=== PATIENT | female | born 1995 | race African-American/Black ===

== ENCOUNTER 2016-08-03 03:48 | Inpatient (IN) | payer OTHER ==
[2016-08-03 04:50] LABS: BASOPHIL 0.4 % (0-2.0); MCH 26.6 pg (25.7-33.7); MCHC 32.8 g/dl (32.0-36.0); MEAN CELL VOLUME 80.9 fl (80-96); NEUTROPHILS 68.6 % (42.8-82.8); RDW 13.7 % (11.6-15.6); WHITE BLOOD COUNT 10.2 K/mm3 (4.0-10.0)
--- NOTE | 2016-08-03 04:54 | HP ---
Past Medical History - Admission Chief Complaint: she c/o ruptured meebranes History of Present Illness: 20 y/o female gestational age 38 -39 WEEKS ANTEPARTUM care was done by dr Enciso .she offers no complaints her care has been unremarkablep 11 08 15 due date is 08 15 16 History Source: Patient Limitations to Obtaining History: No Limitations - Past Medical History DATA MIGRATION LEAD: No: Alzheimer's, CVA, Dementia, Migraine, Multiple Sclerosis, Peripheral Neuropathy, Parkinson's, Seizure, Syncope, TIA, Vertigo, Other Cardiovascular: No: AFIB, Aneurysm, Aortic Insufficiency, Aortic Stenosis, CAD, CHF, Deep Vein Thrombosis, HTN, Hyperlipdemia, RI, Mitral Insufficiency, Mitral Stenosis, Murmur, Pulmonary Hypertension, Other Pulmonary: No: Asthma, Bronchitis, Cancer, COPD, O2 Dependent, Pneumonia, Previously Intubated, Pulmonary Embolus, Pulmonary Fibrosis, Sleep Apnea, Other Gastrointestinal: No: Ascites, Cancer, Constipation, Crohn's Disease, Diverticulitis, Diverticulosis, Esophageal Varices, Gastritis, GERD, GI Bleed, Hemorrhoids, Hiatal Hernia, Inflamatory Bowel Disease, Irritable Bowel Disease, Pancreatitis, Peptic Ulcer Disease, Ulcerative Colitis, Other Hepatobiliary: No: Cirrhosis, Cholelithiasis, Cholecystitis, Choledocholithiasis , Hepatitis A, Hepatitis B, Hepatitis C, Other Renal/: No: Renal Failure, Renal Inusuff, BPH, Cancer, Hematuria, Hemodialysis , Neurogenic Bladder, Renal Calculi, UTI, Other Reproductive: No: Ectopic , Endometriosis, Fibroids, PID, Polycystic Ovary Syndrome, Postmenopausal, Other ...: 2 ...Para: 0 ...Term: 0 ...: 0 ...Spon : 0 ...Induced : 1 ...Multiple Gestation: 0 ...LMP: 11/08/15 ... Weeks Gestation by Dates: 38.2 ...EDC by Dates: 08/15/16 Heme/Onc: No: Anemia, B12 Deficiency, Bleeding Disorder, Cancer, Current Chemotherapy, Current Radiation Therapy, Hemochromatosis, Hypercoaguable State, Myeloproliferative Synd, Sickle Cell Disease, Sickle Cell Trait, Thrombocytopenia, Other Infectious Disease: No: AIDS, C-Diff, Herpes Zoster, HIV, MRSA, STD's, Tuberculosis, VREF, Other Psych: No: Addictions, Anxiety, Bipolar, Depression, Panic, Psychosis, Schizophrenia, Other Musculoskeletal: No: Bursitis, Chronic low back pain, Hemiparesis, Hemiplegia, Osteoarthritis, Paraplegia, Other Rheumatology: No: Fibromyalgia, Gout, Lupus, Rheumatoid Arthritis, Sarcoidosis, Vasculitis, Other ENT: No: Allergic Rhinitis, Sinusitis, Other Endocrine: No: [place]'s Disease, Ashely's Disease, Diabetes Insipidus, Diabetes Mellitus, Hyperparathyroidism, Hyperthyroidism, Hypothyroidism, Osteopenia, SIADH, Other Dermatology: No: Basal Cell, Cellulitis, Eczema, Melanoma, Psoriasis, Squamous Cell, Other - Past Surgical History Past Surgical History: No: None, AAA Repair, AICD, Amputation, Appendectomy, Arthrosocopy, AV Fistula/Graft, Bariatric Surgery, Breast Biopsy, Bypass, CABG, Carotid Endarterectomy, Cataract Removal, Cholecystectomy, Colectomy, Colonoscopy, Colostomy, Craniotomy, , Cystectomy, Hernia Repair, Hysterectomy, Ileal Conduit, Ileosotomy, Joint Replacement, Kidney Transplant, Laminectomy, Liver Transplant, Mastectomy, Nephrectomy, Oopherectomy, Orchiectomy, Permanent Pacemaker, Prostatectomy, Splenectomy, Stent, Thoracotomy , TURP, Tonsillectomy, Tubal Ligation, Upper Endoscopy, Valve Replacement, Vasectomy, Vein Stripping/Ligation Hx Myomectomy: No Hx Transabdominal Cerclage: No - Smoking History Smoking history: Never smoked Have you smoked in the past 12 months: No Aproximately how many cigarettes per day: 0 - Alcohol/Substance Use Hx Alcohol Use: No Home Medications - Allergies Allergies/Adverse Reactions: Allergies Allergy/AdvReac Type Severity Reaction Status Date / Time No Known Allergies Allergy Verified 03/31/16 13:02 - Home Medications Home Medications: Ambulatory Orders Vit/Iron Fumarate/FA [ Tablet] 1 tablet PO DAILY 03/28/16 Family Disease History - Family Disease History Family History: Unremarkable Review of Systems - Review of Systems Constitutional: denies: No Symptoms, Chills, Diaphoresis, Fever, Lethargy, Loss of Appetite, Malaise, Night Sweats, Unintentional Wgt. Loss, Weakness, Other Eyes: denies: No Symptoms, Blind Spots, Blurred Vision, Double Vision, Eye Pain , Floaters, Photophobia, Recent Change in Vision, Other HENT: denies: No Symptoms, Difficult Swallowing, Ear Discharge, Ear Pain, Epistaxis, Gingival Bleeding, Hearing Loss, Mouth Swelling, Nasal Congestion, Ocular Prosthesis, Throat Pain, Toothache, Ringing in Ears, Other Neck: denies: No Symptoms, Decreased ROM, Lumps, Pain on Movement, Stiffness, Swollen Glands, Tenderness, Other Cardiovascular: denies: No Symptoms, Chest Pain, Edema, Palpitations, Shortness of Breath, Other Respiratory: denies: No Symptoms, Cough, Exercise Intolerance, Hemoptysis, Orthopnea, PND, Snoring, SOB, SOB on Exertion, Wheezing, Other Gastrointestinal: denies: No Symptoms, Abdominal Pain, Bloating, Constipation, Diarrhea, Dysphagia, Indigestion, Melena, Nausea, Rectal Bleeding, Vomiting, Vomiting Blood, Other Genitourinary: denies: No Symptoms, Burning, Discharge, Dysuria, Flank Pain, Frequency, Hematuria, Incontinence, Lesions, Menses, Pain, Testicular Mass, Testicular Pain, Testicular Swelling, Urgency, Vaginal Bleeding, Other Breasts: denies: No Symptoms Reported, See HPI, Breast Implants, Discharge from Nipple, Lumps, Pain, Skin Changes, Other Musculoskeletal: denies: No Symptoms, Back Pain, Crepitus, Decreased ROM, Extremity Pain, Joint Pain, Joint Swelling, Muscle Pain, Muscle Cramps, Muscle Weakness, Other Integumentary: denies: No Symptoms, Blister, Bruising, Change in Color, Eczema, Erythema, Incision, Lesions, Lump, Pallor, Pruritis, Rash, Wound, Other Neurological: denies: No Symptoms, Change in LOC, Change in Speech, Confusion, Dizziness, Headache, Incoordination, Numbness, Parasthesia, Pre-Existing Deficit , Seizure, Syncope, Tremors, Unsteady Gait, Weakness, Other Endocrine: denies: No Symptoms, Excessive Sweating, Flushing, Increased Hunger, Increased Thirst, Intolerance to Cold, Intolerance to Heat, Unexplained Weight Gain, Unexplained Weight Loss, Other Psychiatric: denies: No Symptoms, Altered Sleep Pattern, Anxiety, Depression, Hallucinations, Panic, Paranoia, Suicidal, Other Physical Exam - Maternity Vital Signs: Vital Signs Temperature 97.9 F 08/03/16 04:14 Pulse Rate Respiratory Rate Blood Pressure O2 Sat by Pulse Oximetry (%) Constitutional: Yes: Well Nourished, No Distress, Anxious Eyes: Yes: WNL HENT: Yes: WNL Neck: Yes: WNL Cardiovascular: Yes: WNL Lungs: Clear to auscultation, Normal air movement Breast(s): Yes: WNL - Abdominal Exam/OB Number of Fetuses: Single Presentation: Vertex Assessment/Plan iup at term with ruptured membranes is admitted to L&D for labor and delivery current cervical evaluation is 4 cm 90% effaced continue continuous maternal monitoring GBS PROPHYLAXIS DUE TO UNKNOWN STATUS
[2016-08-03 05:08] LABS: INR 0.95 (0.82-1.09); PROTHROMBIN TIME (PATIENT) 10.4 SEC (9.98-11.88)
[2016-08-03] MEDS ORDERED: AMPICILLIN - 2 GM in SODIUM CHLORIDE 100 ML IVPB ONE (05:13)
[2016-08-03 05:14] LABS: MEAN PLT VOLUME 10.2 fl (7.5-11.1); PLATELET COUNT 82 K/MM3 (134-434)
[2016-08-03 05:15] LABS: PLATELET COMMENT2 NO CLOTTING DETECTED; PLATELET COMMENT3 FEW GIANT PLTS; PLATELET ESTIMATE SLT DECREASED (NORMAL)
[2016-08-03] MEDS ORDERED: DEXTROSE 5%-LACTATED RINGERS 1,000 ML IV SCH (05:15)
[2016-08-03] MEDS ORDERED: ELECTROLYTE-148 SOLN 1,000 ML IV SCH (05:15)
[2016-08-03 05:36] VITALS: BMI 26.5
[2016-08-03 05:46] LABS: ALBUMIN 3.4 g/dl (3.4-5.0); ALK PHOS 679 U/L (45-117); ANION GAP 8 (8-16); BILIRUBIN,TOTAL 0.2 mg/dL (0.2-1.0); CALCIUM 8.9 mg/dL (8.5-10.1); CO2 26 mmol/L (21-32); CREATININE 0.6 mg/dL (0.55-1.02); GLUCOSE,RANDOM 110 mg/dL (74-106); SGOT/AST 13 U/L (15-37); SGPT/ALT 13 U/L (12-78)
[2016-08-03 06:00] LABS: HIV 1 & 2 AB NEGATIVE; HIV 1 AGp24 NEGATIVE
[2016-08-03] MEDS ORDERED: TUBERCULIN PPD 5 TU/0.1ML SYRINGE (IN PATIENT USE ONLY) ID ONE (06:00)
[2016-08-03] MEDS ORDERED: BUTORPHANOL TARTRATE 1 MG/ML VIAL IVPUSH PRN (06:16)
[2016-08-03] MEDS: PROMETHAZINE HCL 25 MG/1 ML VIAL IM PRN ×2 (07:00→10:05)
--- NOTE | 2016-08-03 08:01 | PN ---
Progress Note, Labor Vaginal Exam #3 Labor Exam Date: 08/02/16 Labor Exam Time: 07:55 Heart Rate (range): 150bpm with occasional variabilities Dilatation: 7cm Effacement (%): complete Amniotic Membrane Status: Ruptured Presentation: Vertex/Position Station: 0 Remarks: tracing recovered with the patient on the left side , nasal O2 running . continue very close monitoring .
[2016-08-03 08:29] LABS: URINE APPEARANCE CLEAR; URINE BILIRUBIN NEGATIVE (NEGATIVE); URINE COLOR LTYELLOW; URINE GLUCOSE (UA) NEGATIVE (NEGATIVE); URINE KETONE NEGATIVE (NEGATIVE); URINE LEUK ESTERASE NEGATIVE (NEGATIVE); URINE NITRITE NEGATIVE (NEGATIVE); URINE PROTEIN NEGATIVE (NEGATIVE); URINE UROBILINOGEN NEGATIVE E.U./dl (0.2-1.0)
[2016-08-03 08:30] LABS: URINE BLOOD 2+ (NEGATIVE)
[2016-08-03 08:31] LABS: URINE BACTERIA RARE /hpf (NONE SEEN); URINE RBC 14 /hpf (0-3); URINE WBC 1 /hpf (3-5)
[2016-08-03 08:36] LABS: URIC ACID 5.1 mg/dL (2.6-7.2)
[2016-08-03 08:42] LABS: BASOPHIL 0.6 % (0-2.0); EOSINOPHIL 0.4 % (0-4.5); MCH 26.3 pg (25.7-33.7); MCHC 32.5 g/dl (32.0-36.0); MEAN CELL VOLUME 80.8 fl (80-96); MEAN PLT VOLUME 9.4 fl (7.5-11.1); NEUTROPHILS 77.4 % (42.8-82.8); PLATELET COUNT 69 K/MM3 (134-434); RDW 13.5 % (11.6-15.6); WHITE BLOOD COUNT 11.3 K/mm3 (4.0-10.0)
[2016-08-03] MEDS: AMPICILLIN - 1 GM in SODIUM CHLORIDE 100 ML IVPB SCH (09:30)
[2016-08-03] MEDS ORDERED: BUTORPHANOL TARTRATE 1 MG/ML VIAL IVPUSH ONE (10:01)
[2016-08-03 10:26] LABS: URIC ACID 5.1 mg/dL (2.6-7.2)
--- NOTE | 2016-08-03 11:49 | PN ---
Ante-Partal Exam - Subjective Subjective: Pt with c/o pain desires meds unable to get epidural due to plt ct no bleeding Vital Signs: Vital Signs Temperature 98.2 F 08/03/16 10:00 Pulse Rate 66 08/03/16 10:00 Respiratory Rate 20 08/03/16 10:00 Blood Pressure 130/70 08/03/16 10:00 O2 Sat by Pulse Oximetry (%) Bleeding: No Headache: No Visual changes: No Right upper quadrant pain: No - Exam during Labor Category: I Monitor Accelerations: Present Monitor Decelerations: None Exam: Vaginal Dilatation (cm): 6-7 Effacement (%): 100 Amniotic Membrane Status: Ruptured Presentation: Vertex Station: 0 - Assessment/Plan Assessment/Plan: Active labor Cat 1 thrombocytopenia Plan Pitocin augmentation stadol will repeat pre ecp labs
--- NOTE | 2016-08-03 12:47 | PN ---
[id number] Rate 66 08/03/16 12:00 Respiratory Rate 20 08/03/16 12:00 Blood Pressure 136/68 08/03/16 12:00 O2 Sat by Pulse Oximetry (%) Headache: No Visual changes: No Right upper quadrant pain: No - Contractions Contractions: Yes Regularity: Regular - Exam during Labor Category: II Monitor Decelerations: Variable Exam: Vaginal Dilatation (cm): 10 Effacement (%): 100 Amniotic Membrane Status: Ruptured Presentation: Vertex - Assessment/Plan Assessment/Plan: active labor 2nd stage paln anticipate vaginal delivery
[2016-08-03] MEDS ORDERED: IBUPROFEN 600 MG TABLET (FP) PO PRN (14:07)
[2016-08-03] MEDS ORDERED: BENZOCAINE 28 GM HEMORRHOIDAL OINTMENT TP PRN (14:07)
[2016-08-03] MEDS ORDERED: ACETAMINOPHEN 325 MG TABLET (FP) PO PRN (14:07)
[2016-08-03] MEDS ORDERED: METHYLERGONOVINE MALEATE 0.2 MG/1 ML AMP IM PRN (14:07)
[2016-08-03] MEDS ORDERED: WITCH HAZEL 50% (TUCKS) 40 PAD/JAR PAD TP PRN (14:07)
[2016-08-03] MEDS ORDERED: BISACODYL 10 MG SUPP.RECT RC PRN (14:07)
[2016-08-03] MEDS ORDERED: BENZOCAINE 20% 57 GM BOTTLE TP PRN (14:07)
--- NOTE | 2016-08-03 14:12 | PN ---
Delivery - Delivery Vaginal Delivery: Spontaneous Type of Anesthesia: Local Episiotomy/Laceration: Midline EBL (cc): 250 Delivery, Single - Feeding Plan Initial Plan: Elected not to breastfeed exclusively throughout hospitalization Remarks - Remarks Remarks: of a live boy over midline episiotomy. Nose / Oropharynx suctioned @ the perineum. Tight Nuchal Cord clamped and cut. Baby handed to Physician Surgeon. Placenta expelled spontaneously intact. Midline episiotomy repaired with 2.0 Chromic.
[2016-08-03] MEDS ORDERED: D5W-LR W/ 20 UNITS OXYTOCIN 1,000 ML IV SCH (14:15)
[2016-08-03] MEDS: FERROUS SO4 325 MG TABLET (FP) PO SCH (17:28)
[2016-08-04 07:34] LABS: BASOPHIL 0.5 % (0-2.0); EOSINOPHIL 0.1 % (0-4.5); MCH 25.9 pg (25.7-33.7); MCHC 31.9 g/dl (32.0-36.0); MEAN CELL VOLUME 81.2 fl (80-96); MEAN PLT VOLUME 10.4 fl (7.5-11.1); NEUTROPHILS 76.5 % (42.8-82.8); PLATELET COUNT 83 K/MM3 (134-434); RDW 13.5 % (11.6-15.6)
[2016-08-04] MEDS: FERROUS SO4 325 MG TABLET (FP) PO SCH ×3 (08:35→18:18)
[2016-08-04] MEDS: AMPICILLIN - 1 GM in SODIUM CHLORIDE 100 ML IVPB SCH ×2 (08:39→08:40)
[2016-08-04] MEDS ORDERED: DIPHTH,PERTUSS(ACELL),TET 0.5 ML DISP.SYRIN IM ONE (10:00)
[2016-08-04] MEDS: PRENATAL VITAMINS W/ FOLIC ACID TABLET (FP) PO SCH (10:15)
--- NOTE | 2016-08-04 18:56 | PN ---
Post Note - Post Date of Delivery: 08/03/16 Post Day: 1 Vital Signs: Vital Signs - 24 hr 08/03/16 08/04/16 08/04/16 20:55 00:29 05:02 Temperature 98.0 F 99.6 F 99.2 F Pulse Rate 74 70 88 Respiratory 20 20 20 Rate Blood Pressure 133/78 126/77 136/74 08/04/16 08/04/16 08:56 14:45 Temperature 98.8 F 98.8 F Pulse Rate 75 75 Respiratory 20 20 Rate Blood Pressure 136/87 136/87 Labs: Laboratory Results - last 24 hr 08/04/16 06:15 WBC 15.0 H D RBC 3.41 L Hgb 8.8 L D Hct 27.7 L MCV 81.2 MCHC 31.9 L RDW 13.5 Plt Count 83 L D MPV 10.4 D Neutrophils % 76.5 Lymphocytes % 16.5 Monocytes % 6.4 Eosinophils % 0.1 Basophils % 0.5 - Subjective Subjective: No Complaints - Objective Afebrile: Yes Breast: Not engorged Abdomen: Soft, Non-tender Uterus: Fundus firm Vagina: Scant lochia Extremities: Non-tender - Assessment/Plan (1) Status post normal vaginal delivery Plan: Routine Care
[2016-08-04] MEDS ORDERED: SENNOSIDES/DOCUSATE COMBO (SENNA PLUS) TABLET (UD) PO PRN (22:00)
[2016-08-05] MEDS: FERROUS SO4 325 MG TABLET (FP) PO SCH ×2 (08:29→11:49)
[2016-08-05 09:14] VITALS: BP 123/86; PULSE 78; TEMP 99.5
--- NOTE | 2016-08-05 09:14 | DS ---
Physical Exam-SERVICE PROVIDER Vital Signs: Vital Signs Temperature 98.1 F 08/04/16 22:00 Pulse Rate 86 08/04/16 22:00 Respiratory Rate 18 08/04/16 22:00 Blood Pressure 134/88 08/04/16 22:00 O2 Sat by Pulse Oximetry (%) 99 08/03/16 14:45 Constitutional: Yes: Well Nourished Eyes: Yes: Conjunctiva Clear HENT: Yes: Atraumatic Neck: Yes: Supple, Trachea Midline Cardiovascular: Yes: Regular Rate and Rhythm Respiratory: Yes: Regular, CTA Bilaterally Gastrointestinal: Yes: Normal Bowel Sounds ...Rectal Exam: Yes: WNL External Genitalia: Yes: Normal ....Post : Yes: Uterus firm, Moderate lochia rubra Breast(s): Yes: WNL Neurological: Yes: Alert, Oriented ...Motor Strength: WNL Psychiatric: Yes: Alert, Oriented Labs: CBC, BMP 08/04/16 06:15 08/03/16 04:30 Delivery - Delivery Vaginal Delivery: Spontaneous Type of Anesthesia: Local Episiotomy/Laceration: Midline EBL (cc): 250 Delivery, Single - Stages of Labor Date 1st Stage Initiatied: 08/03/16 Time 1st Stage Initiated: 01:00 Date 2nd Stage Initiated: 08/03/16 Time 2nd Stage Initiated: 13:00 Date of Delivery: 08/03/16 Time of Delivery: 13:40 Time Placenta Delivered: 13:46 - Condition of Infant Product Marketing Director/Email Production Specialist Present: Yes Name: Lalitha Kumar Gender: Male Weight: 6 lb 4 oz Position: Left, OA Total Hours ROM (Hrs/Mins): 3h45m - 1 Minute Total Score: 5 5 Minutes Total Score: 7 - Feeding Plan Initial Plan: Elected not to breastfeed exclusively throughout hospitalization Discharge Summary Reason For Visit: ADMIT FOR LABOR Current Active Problems Status post normal vaginal delivery (Acute) Procedures: Principal: Normal spontaneous vaginal delivery Other Procedures: Midline Episiotomy Hospital Course: Routine care No blood transfusion, no additional dosage of antibiotic required. Condition: Good - Instructions Diet, Activity, Other Instructions: Regular diet No sexual intercourse x 6 weeks. F/U with MD in 6 weeks Disposition: HOME - Home Medications Comprehensive Discharge Medication List: Ambulatory Orders Vit/Iron Fumarate/FA [ Tablet] 1 tablet PO DAILY 03/28/16
[2016-08-05] MEDS: PRENATAL VITAMINS W/ FOLIC ACID TABLET (FP) PO SCH (09:34)
== END 2016-08-05 14:15 | disposition home or self-care (01) | DRG 560 ==
LOC: JDEL 03:48 → JLDR 04:00 → J3W 16:00
PROVIDERS: ADMIT Obstetrics & Gynecology; ATTEND Obstetrics & Gynecology
PROC: 10E0XZZ Delivery of Products of Conception, External Approach (ICD-10-PCS; principal; 2016-08-03)
PROC: 0W8NXZZ Division of Female Perineum, External Approach (ICD-10-PCS; 2016-08-03)
DX: O99.12 Other diseases of the blood and blood-forming organs and certain disorders involving the immune mechanism complicating childbirth (principal); D69.6 Thrombocytopenia, unspecified; Z3A.39 39 weeks gestation of pregnancy; Z37.0 Single live birth
CPT/HCPCS: 36415; 59409; 80053; 81003; 81015; 82977; 83010; 84450; 84460; 84550; 85025; 85044; 85610; 85730; 86593; 86762; 86850; 86900; 86901; 87340; 87389; 90715

== ENCOUNTER 2017-04-05 10:05 | Emergency (ER) | payer OTHER ==
[2017-04-05 10:12] VITALS: BP 120/81; PULSE 83; TEMP 98; BMI 32.9
[2017-04-05] MEDS ORDERED: ALBUTEROL SO4 2.5/IPRATROPIUM 0.5 INH SOL 3 ML VIAL.NEB. NEB ONE ×2 (11:21→11:23)
[2017-04-05] MEDS ORDERED: predniSONE 20 MG TABLET (UD) PO ONE (11:21)
[2017-04-05] MEDS ORDERED: predniSONE 20 MG TABLET (UD) ONE (11:23)
--- NOTE | 2017-04-05 11:41 | PDOC ---
History of Present Illness - General Chief Complaint: Cold Symptoms Stated Complaint: COLD SYMPTOMS Time Seen by Provider: 04/05/17 10:41 History Source: Patient Exam Limitations: No Limitations - History of Present Illness Initial Comments: 04/05/17 patient came for evaluation of persistent cold symptoms. was seen by PMD approximately 3 weeks ago and told was a viral illness and to continue doing homeopathic treatments and Tylenol as she is still breast- feeding. Denies purulent drainage from nose or cough. has had no fevers, but has persistent cough. Timing/Duration: reports: just prior to arrival, changing over time (on and off x `1 month ) Severity: reports: mild, moderate Possible Cause: Yes: chronic episodes Past History - Travel Traveled outside of the country in the last 30 days: No Close contact w/someone who was outside of country & ill: No - Past Medical History Allergies/Adverse Reactions: Allergies Allergy/AdvReac Type Severity Reaction Status Date / Time No Known Allergies Allergy Verified 04/05/17 10:42 Home Medications: Ambulatory Orders Albuterol Sulfate Inhaler - [Ventolin HFA Inhaler -] 1 - 2 inh PO Q4H #1 inhaler 04/05/17 Prednisone [Deltasone -] 20 mg PO BID #8 tablet 04/05/17 Asthma: No Cancer: No Cardiac Disorders: No CVA: No COPD: No Diabetes: No HTN: No Seizures: No Thyroid Disease: No - Surgical History Abdominal Surgery: Yes (HERNIA REPAIR) - Reproductive History (#): 2 Para: 0 Cervical CA: No Dysfunctional Uterine Bleeding: No Ectopic : No Endometrial CA: No Polycystic Ovaries: No Therapeutic (s) & number: Yes Tubal Ligation: No Spontaneous : 0 - Immunization History Immunization Up to Date: Yes - Suicide/Smoking/Psychosocial Hx Smoking Status: No Smoking History: Never smoked Have you smoked in the past 12 months: No Number of Cigarettes Smoked Daily: 0 Information on smoking cessation initiated: No Hx Alcohol Use: No Drug/Substance Use Hx: No Substance Use Type: None Hx Substance Use Treatment: No Review of Systems - Review of Systems Able to Perform ROS?: Yes Is the patient limited [place] proficient: Yes Constitutional: Yes: Symptoms Reported, See HPI, Malaise. No: Fever HEENTM: Yes: Symptoms Reported, Nose Pain, Nose Congestion Respiratory: Yes: Symptoms reported, See HPI, Cough, Wheezing Cardiac (ROS): No: Symptoms Reported Integumentary: Yes: Symptoms Reported, See HPI All Other Systems: Reviewed and Negative *Physical Exam - Vital Signs Last Vital Signs Temp Pulse Resp BP Pulse Ox 98.0 F 83 16 120/81 98 04/05/17 10:09 04/05/17 10:09 04/05/17 10:09 04/05/17 10:09 04/05/17 10:09 - Physical Exam General Appearance: Yes: Nourished, Appropriately Dressed, Apparent Distress, Mild Distress HEENT: positive: HAIR, Normal ENT Inspection, TMs Normal, Pharynx Normal Neck: positive: Supple Respiratory/Chest: positive: Lungs Clear, Wheezing (course inspiratory) Gastrointestinal/Abdominal: positive: Normal Bowel Sounds, Soft. negative: Tender Extremity: positive: Normal Inspection Integumentary: positive: Normal Color, Dry, Warm, Pale Neurologic: positive: windows admin II-XII NML intact, Fully Oriented, Alert, Normal Mood/ Affect, Normal Response, Motor Strength 5/5 Progress Note - Progress Note Progress Note: Mildly improved after DuoNeb. We will prescribe albuterol pump and encourage continued conservative treatment and follow-up with PMD this week. *DC/Admit/Observation/Transfer Diagnosis at time of Disposition: Upper respiratory infection Qualifiers: URI type: unspecified viral URI Qualified Code(s): J06.9 - Acute upper respiratory infection, unspecified - Discharge Dispostion Disposition: HOME Condition at time of disposition: Stable Admit: No - Prescriptions Prescriptions: Albuterol Sulfate Inhaler - [Ventolin HFA Inhaler -] 1 - 2 inh PO Q4H #1 inhaler Prednisone [Deltasone -] 20 mg PO BID #8 tablet - Referrals Referrals: Alexa Villanueva FNP [Primary Care Provider] - - Patient Instructions Printed Discharge Instructions: DI for Viral Upper Respiratory Infection -- Adult Additional Instructions: Rest, drink lots of fluids: Teas, water, soups, Pedialyte Saltwater gargles Steamy showers/seem to face break up mucus Avoid contact with others until fevers and cough resolved Lots of handwashing and good hygiene Continue [id number] medications for symptomatic relief Tylenol or Motrin for fever and pain Continue albuterol nebulizers every 4-6 hours for the next 2 days then as needed for continued cough Prednisone as directed until completed Followup with private physician in one to 2 days Return to emergency department / pediatric hospital for worsened symptoms, fevers, dehydration - Post Discharge Activity Forms/Work/School Notes: Back to Work
== END 2017-04-05 11:59 | disposition home or self-care (01) ==
LOC: JERFT 10:05
PROC: 3E0F7GC Introduction of Other Therapeutic Substance into Respiratory Tract, Via Natural or Artificial Opening (ICD-10-PCS; principal; 2017-04-05)
DX: J06.9 Acute upper respiratory infection, unspecified (principal); B97.89 Other viral agents as the cause of diseases classified elsewhere
CPT/HCPCS: 94640; 99281-25

== ENCOUNTER 2017-04-09 15:41 | Emergency (ER) | payer OTHER ==
[2017-04-09 15:52] VITALS: BP 127/69; PULSE 98; TEMP 97.9; BMI 32.9
--- NOTE | 2017-04-09 15:52 | PDOC ---
Rapid Medical Evaluation Time Seen by Provider: 04/09/17 15:48 Medical Evaluation: Allergies Allergy/AdvReac Type Severity Reaction Status Date / Time No Known Allergies Allergy Verified 04/05/17 10:42 04/09/17 15:50 Pt presents with complaint of :nasal congestion and forehead pressure x 1 month. pt seen 04/05 and given prednisone and inhaler with minimal improvement On brief exam: vsROSARIO [place] I have ordered the following: none Pt will go to the Emergency Dept for further workup Discharge Disposition - Diagnosis Nasal congestion - Referrals - Patient Instructions - Post Discharge Activity
--- NOTE | 2017-04-09 18:01 | PDOC ---
History of Present Illness - General Chief Complaint: Cold Symptoms Stated Complaint: REVISIT, RESPIRATORY Time Seen by Provider: 04/09/17 15:48 History Source: Patient Exam Limitations: No Limitations - History of Present Illness Initial Comments: 04/09/17 18:01 `My Chief Complaint: sinus pressure, productive cough History of Present Illness: Pt. is a 21-year-old female with no significant medical history here today complaining of sinus pressure frontal right maxillary and ethmoid getting worse. Patient reports that she can breathe through her nose does not have nasal discharge. Patient does have a productive cough with yellowish phlegm. Patient reports that she is wheezing intermittently relieved by albuterol. Pt. is unsure if she is . ` 04/09/17 18:05 Timing/Duration: getting worse Severity: moderate Associated Symptoms: reports: cough (productive), other (sinus pressure frontal , rt. maxillary ) Past History - Past Medical History Allergies/Adverse Reactions: Allergies Allergy/AdvReac Type Severity Reaction Status Date / Time No Known Allergies Allergy Verified 04/05/17 10:42 Home Medications: Ambulatory Orders Azithromycin [Zithromax 250mg Tablets -] 250 mg PO UTDICT #6 tab 04/09/17 Asthma: No Cancer: No Cardiac Disorders: No CVA: No COPD: No Diabetes: No HTN: No Seizures: No Thyroid Disease: No - Surgical History Abdominal Surgery: Yes (HERNIA REPAIR) - Reproductive History (#): 2 Para: 0 Cervical CA: No Dysfunctional Uterine Bleeding: No Ectopic : No Endometrial CA: No Polycystic Ovaries: No Therapeutic (s) & number: Yes Tubal Ligation: No Spontaneous : 0 - Immunization History Immunization Up to Date: Yes - Suicide/Smoking/Psychosocial Hx Smoking Status: No Smoking History: Never smoked Have you smoked in the past 12 months: No Number of Cigarettes Smoked Daily: 0 Information on smoking cessation initiated: No Hx Alcohol Use: No Drug/Substance Use Hx: No Substance Use Type: None Hx Substance Use Treatment: No Review of Systems - Review of Systems Able to Perform ROS?: Yes Constitutional: No: Symptoms Reported HEENTM: Yes: Nose Congestion (improved ), Other (sinus pressure ) Respiratory: Yes: Wheezing (per pt. intermittent improved since last being seen here), Productive cough (yellowish ). No: Shortness of Breath, SOB with Exertion, SOB at Rest, Stridor Cardiac (ROS): No: Symptoms Reported ABD/GI: No: Symptoms Reported : No: Symptoms Reported Musculoskeletal: No: Symptoms Reported Integumentary: No: Symptoms Reported Neurological: No: Symptoms reported *Physical Exam - Vital Signs Last Vital Signs Temp Pulse Resp BP Pulse Ox 97.9 F 98 H 18 127/69 100 04/09/17 15:50 04/09/17 15:50 04/09/17 15:50 04/09/17 15:50 04/09/17 15:50 - Physical Exam General Appearance: Yes: Appropriately Dressed HEENT: positive: TMs Normal, Sinus Tenderness (frontal, rt. maxillary, ethmoid b /l ). negative: Pharyngeal Erythema, Tonsillar Exudate, Tonsillar Erythema, Nasal Congestion, Rhinorrhea Neck: negative: Lymphadenopathy (R), Lymphadenopathy (L) Respiratory/Chest: positive: Lungs Clear, Normal Breath Sounds. negative: Chest Tender, Respiratory Distress Cardiovascular: positive: Regular Rhythm, Regular Rate, S1, S2 Integumentary: positive: Normal Color Neurologic: positive: Alert, Normal Response, Responsive Medical Decision Making - Medical Decision Making 04/09/17 18:07 Pt. is a 21-year-old female with no significant medical history here today complaining of sinus pressure frontal right maxillary and ethmoid getting worse. Patient reports that she can breathe through her nose does not have nasal discharge. Patient does have a productive cough with yellowish phlegm. Patient reports that she is wheezing intermittently relieved by albuterol. Pt. is unsure if she is . sinusiitis bronchitis PLAN: urine hcg positive azithromycin 250 mg 2 tabs today than one tab daily for following 4 days follow up with ob as soon as possible ` 04/09/17 18:34 04/11/17 19:44 *DC/Admit/Observation/Transfer Diagnosis at time of Disposition: Nasal congestion, Bronchitis, Positive test Sinusitis Qualifiers: Sinusitis location: unspecified location Chronicity: acute Recurrence: not specified as recurrent Qualified Code(s): J01.90 - Acute sinusitis, unspecified - Discharge Dispostion Disposition: HOME Condition at time of disposition: Stable - Prescriptions Prescriptions: Azithromycin [Zithromax 250mg Tablets -] 250 mg PO UTDICT #6 tab - Referrals - Patient Instructions Additional Instructions: Humane put a warm washcloth over your face every few hours to help drainage of your sinuses Take only acetaminophen as needed as directed by veneer manufacturer for pain do not take ibuprofen, Advil or Aleve or Naprosyn Follow-up with your LEAD BUSINESS SYSTEMS ANALYST doctor as soon as possible Follow-up with your primary care provider within the next few days Use your Ventolin pump as needed Drink a lot a fluids Return to emergency room if symptoms worsen any difficulty breathing Patient voiced understanding of discharge instructions and all questions were answered - Post Discharge Activity
== END 2017-04-09 18:41 | disposition home or self-care (01) ==
LOC: JERFT 15:41
DX: O99.89 Other specified diseases and conditions complicating pregnancy, childbirth and the puerperium (principal); J40 Bronchitis, not specified as acute or chronic; J01.00 Acute maxillary sinusitis, unspecified; J01.10 Acute frontal sinusitis, unspecified; Z3A.00 Weeks of gestation of pregnancy not specified
CPT/HCPCS: 84703; 99281-25

== ENCOUNTER 2017-09-11 13:14 | Emergency (ER) | payer OTHER ==
[2017-09-11 13:19] VITALS: BP 124/71; PULSE 80; TEMP 98.8; BMI 31.1
[2017-09-11] MEDS ORDERED: SODIUM CHLORIDE 1,000 ML IV STA (14:48)
[2017-09-11 15:09] LABS: BASO % 0.7 % (0-2.0); EOS % 0.5 % (0-4.5); HEMATOCRIT 36.3 % (32.4-45.2); HEMOGLOBIN 12.1 GM/dL (10.7-15.3); LYMPH % 22.3 % (8-40); MCH 26.3 pg (25.7-33.7); MCHC 33.5 g/dl (32.0-36.0); MEAN CELL VOLUME 78.6 fl (80-96); MEAN PLT VOLUME 8.7 fl (7.5-11.1); MONO % 5.3 % (3.8-10.2); NEUT % 71.2 % (42.8-82.8); PLATELET COUNT 298 K/MM3 (134-434); RBC 4.62 M/mm3 (3.60-5.2); RDW 14.4 % (11.6-15.6); WHITE BLOOD COUNT 11.9 K/mm3 (4.0-10.0)
--- NOTE | 2017-09-11 15:11 | PDOC ---
History of Present Illness - General Chief Complaint: Pain, Acute Stated Complaint: ABD PAIN Time Seen by Provider: 09/11/17 14:24 History Source: Patient Exam Limitations: No Limitations - History of Present Illness Initial Comments: 09/11/17 17:04 21F with no significant PMH, who presents to the emergency department with a sudden onset of moderate to severe right sided flank pain beginning earlier today, radiating to the groin. The patient states the right flank pain woke her up from her sleep and has been gradual worsening throughout the day. She also endorses nausea with emesis (non bloody, non bilious). The patient denies chest pain, shortness of breath, headache and dizziness. Denies fever, chills, diarrhea and constipation. Denies dysuria, frequency, urgency and hematuria. Allergies: NKA Past History - Past Medical History Allergies/Adverse Reactions: Allergies Allergy/AdvReac Type Severity Reaction Status Date / Time No Known Allergies Allergy Verified 09/11/17 13:16 Home Medications: Ambulatory Orders NK [No Known Home Medication] 09/11/17 Asthma: No Cancer: No Cardiac Disorders: No CVA: No COPD: No Diabetes: No HTN: No Seizures: No Thyroid Disease: No - Surgical History Abdominal Surgery: Yes (HERNIA REPAIR) - Reproductive History (#): 2 Para: 0 Cervical CA: No Dysfunctional Uterine Bleeding: No Ectopic : No Endometrial CA: No Polycystic Ovaries: No Therapeutic (s) & number: Yes Tubal Ligation: No Spontaneous : 0 - Immunization History Immunization Up to Date: Yes - Suicide/Smoking/Psychosocial Hx Smoking Status: No Smoking History: Never smoked Have you smoked in the past 12 months: No Number of Cigarettes Smoked Daily: 0 Hx Alcohol Use: No Drug/Substance Use Hx: No Substance Use Type: None Hx Substance Use Treatment: No Review of Systems - Review of Systems Able to Perform ROS?: Yes Is the patient limited Maltese proficient: No Constitutional: Yes: Loss of Appetite HEENTM: No: Symptoms Reported Respiratory: No: Symptoms reported Cardiac (ROS): No: Symptoms Reported ABD/GI: Yes: See HPI : No: Symptoms Reported Musculoskeletal: No: Symptoms Reported Integumentary: No: Symptoms Reported Neurological: No: Symptoms reported Endocrine: No: Symptoms Reported Hematologic/Lymphatic: No: Symptoms Reported All Other Systems: Reviewed and Negative *Physical Exam - Vital Signs Last Vital Signs Temp Pulse Resp BP Pulse Ox 98.8 F 80 18 124/71 99 09/11/17 13:16 09/11/17 13:16 09/11/17 13:16 09/11/17 13:16 09/11/17 13:16 - Physical Exam Comments: 09/11/17 17:13 Vitals: Triage vital signs reviewed General Appearance: No acute distress, well nourished, well developed Head: Atraumatic Eyes: Pupils equal reactive round, extraocular movement intact Neck: Supple; No nuchal rigidity Chest Wall: Nontender Cardiac: Regular rate and rhythm, no murmurs, no rubs, no gallops Lungs: Clear to auscultation bilateral, good air movement bilaterally Abdomen: +Right CVA tenderness to palpation. +Right lower quadrant tenderness to palpation. No rebound, no guarding. Soft, nondistended. Pelvic exam: Negative CMT, negative adnexal tenderness. No blood in vault. Extremities: Full range of motion to all extremities, no cyanosis, clubbing, or edema Skin: Warm and dry, no rashes or lesions, no rash, no petechiae Neuro: AOX3; Cranial Nerves 2-12 grossly intact, Strength intact to all extremities, Sensation intact to all extremities, gait normal Psych: Normal mood, normal affect 09/11/17 17:14 ED Treatment Course - LABORATORY CBC & Chemistry Diagram: 09/11/17 14:52 09/11/17 14:52 Medical Decision Making - Medical Decision Making 09/11/17 17:14 The patient is a 21 year old female, with no significant PMH who presents to the emergency department with a sudden onset of moderate to severe right sided flank pain beginning earlier today. Plan: Labs, fluids, , CT abdomen and pelvis with contrast. Nephrolithiasis vs appendicitis. 09/11/17 19:[address] evidence of acute appendicitis or diverticulitis as discussed above. 3.4 cm involuting left ovarian cyst. There is small amount of pelvic free fluid. Colonic fecal retention which is probably moderate IUD in place. Patient to be dc with GI and [facility] [employer] [facility] follow up *DC/Admit/Observation/Transfer Diagnosis at time of Disposition: Ovarian cyst, Constipation - Discharge Dispostion Disposition: HOME Condition at time of disposition: Improved Admit: No - Referrals Referrals: Marianne Herr MD [Primary Care Provider] - Ghassan Loza MD [Staff Physician] - Azul Gil MD [Staff Physician] - - Patient Instructions Printed Discharge Instructions: DI for Ovarian Cyst, Constipation Additional Instructions: Follow up OBGYN Dr. Gil for your ovarian cyst within 4-5 days,. Follow up with GI doctor Dr. Loza for constipation Come back to the emergency department for any new, worsening or concerning symptom. - Post Discharge Activity
[2017-09-11 15:14] LABS: HCG,QUALITATIVE URINE NEGATIVE
[2017-09-11 15:20] LABS: URINE APPEARANCE CLEAR; URINE BILIRUBIN NEGATIVE (<2.0 mg/dL); URINE COLOR STRAW; URINE GLUCOSE (UA) NEGATIVE (NEGATIVE); URINE KETONE NEGATIVE (NEGATIVE); URINE LEUK ESTERASE TRACE (NEGATIVE); URINE NITRITE NEGATIVE (NEGATIVE); URINE PROTEIN NEGATIVE (NEGATIVE); URINE UROBILINOGEN NEGATIVE mg/dL (0.2-1.0)
[2017-09-11 15:38] LABS: EPI CELLS RARE /HPF (FEW)
[2017-09-11 16:22] LABS: ALBUMIN 4.1 g/dl (3.4-5.0); ANION GAP 8 (8-16); BILIRUBIN,TOTAL 0.2 mg/dL (0.2-1.0); BLOOD UREA NITROGEN 10 mg/dL (7-18); CALCIUM 9.2 mg/dL (8.5-10.1); CHLORIDE 105 mmol/L (98-107); CO2 26 mmol/L (21-32); CREATININE 0.7 mg/dL (0.55-1.02); GLUCOSE,RANDOM 79 mg/dL (74-106); POTASSIUM 4.1 mmol/L (3.5-5.1); SGOT/AST 21 U/L (15-37); SGPT/ALT 30 U/L (12-78); SODIUM 139 mmol/L (136-145)
[2017-09-11 16:23] LABS: ALK PHOS 74 U/L (45-117); TOT PROT 7.9 g/dl (6.4-8.2)
--- NOTE | 2017-09-11 16:31 | PDOC ---
Attending Attestation - HPI HPI: 09/11/17 16:37 The patient is a 21 year old female, with no significant PMH who presents to the emergency department with a sudden onset of moderate to severe right sided flank pain beginning earlier today. The patient states the right flank pain woke her up from her sleep and has been gradual worsening throughout the day. The patient states the right flank pain radiates around to the right side of her abdomen. She also endorses nausea with emesis (non bloody, non bilious). The patient denies chest pain, shortness of breath, headache and dizziness. Denies fever, chills, diarrhea and constipation. Denies dysuria, frequency, urgency and hematuria. Allergies: NKA - Physicial Exam PE: 09/11/17 16:38 Vitals: Triage vital signs reviewed General Appearance: No acute distress, well nourished, well developed Head: Atraumatic Eyes: Pupils equal reactive round, extraocular movement intact Neck: Supple; No nuchal rigidity Chest Wall: Nontender Cardiac: Regular rate and rhythm, no murmurs, no rubs, no gallops Lungs: Clear to auscultation bilateral, good air movement bilaterally Abdomen: +Right CVA tenderness to palpation. +Right lower quadrant tenderness to palpation. No rebound, no guarding. Soft, nondistended. Rectal: Exam deferred Extremities: Full range of motion to all extremities, no cyanosis, clubbing, or edema Skin: Warm and dry, no rashes or lesions, no rash, no petechiae Neuro: AOX3; Cranial Nerves 2-12 grossly intact, Strength intact to all extremities, Sensation intact to all extremities, gait normal Psych: Normal mood, normal affect - Medical Decision Making 09/11/17 16:39 The patient is a 21 year old female, with no significant PMH who presents to the emergency department with a sudden onset of moderate to severe right sided flank pain beginning earlier today. Plan: Labs, Medications, CT abdomen and pelvis with contrast. Documentation prepared by Jenaro Sheppard, acting as medical associate for Ramón Jessica MD. <Jenaro Sheppard - Last Filed: 09/11/17 16:37> - Resident Resident Name: Christiano Cruz - ED Attending Attestation I have performed the following: I have examined & evaluated the patient, The case was reviewed & discussed with the resident, I agree w/resident's findings & plan, Exceptions are as noted - Medical Decision Making Right sided abdominal pain. Ct pending Dr. Santiago to F/U results <Ramón Jessica - Last Filed: 09/11/17 16:50>
[2017-09-11] MEDS ORDERED: KETOROLAC TROMETHAMINE 15 MG/ML VIAL IVPUSH ONE (18:45)
[2017-09-11] MEDS ORDERED: KETOROLAC TROMETHAMINE 15 MG/ML VIAL ONE (19:13)
--- NOTE | 2017-09-11 19:17 | PDOC ---
*Physical Exam - Vital Signs Last Vital Signs Temp Pulse Resp BP Pulse Ox 98.8 F 80 18 124/71 99 09/11/17 13:16 09/11/17 13:16 09/11/17 13:16 09/11/17 13:16 09/11/17 13:16 - Physical Exam General Appearance: Yes: Nourished Neck: positive: Trachea midline Respiratory/Chest: positive: Chest Tender, Lungs Clear, Normal Breath Sounds Cardiovascular: positive: Regular Rhythm, Regular Rate, S1, S2 Gastrointestinal/Abdominal: positive: Normal Bowel Sounds, Tender (mild rlq ttp no rebound no guarding. ) ED Treatment Course - LABORATORY CBC & Chemistry Diagram: 09/11/17 14:52 09/11/17 14:52 - ADDITIONAL ORDERS Additional order review: Laboratory Results 09/11/17 09/11/17 14:52 14:52 Sodium 139 Potassium 4.1 Chloride 105 Carbon Dioxide 26 Anion Gap 8 BUN 10 Creatinine 0.7 Creat Clearance w eGFR > 60 Random Glucose 79 Calcium 9.2 Total Bilirubin 0.2 AST 21 ALT 30 Alkaline Phosphatase 74 Total Protein 7.9 Albumin 4.1 Urine Color Straw Urine Appearance Clear Urine pH 6.0 Ur Specific [place] 1.009 Urine Protein Negative Urine Glucose (UA) Negative Urine Ketones Negative Urine Blood Negative Urine Nitrite Negative Urine Bilirubin Negative Urine Urobilinogen Negative Ur Leukocyte Esterase Trace Urine WBC (Auto) <1 Urine RBC (Auto) 1 Ur Epithelial Cells Rare Urine HCG, Qual Negative 09/11/17 14:52 RBC 4.62 D MCV 78.6 L MCHC 33.5 RDW 14.4 MPV 8.7 D Neutrophils % 71.2 Lymphocytes % 22.3 D Monocytes % 5.3 Eosinophils % 0.5 D Basophils % 0.7 - Medications Given in the ED: ED Medications Discontinued Medications Generic Name Dose Route Start Last Admin Trade Name Freq PRN Reason Stop Dose Admin Sodium Chloride 1,000 mls @ 1,000 mls/hr 09/11/17 14:48 09/11/17 15:27 Normal Saline - IV 09/11/17 15:47 1,000 mls/hr ASDIR STA Administration Medical Decision Making - Medical Decision Making 09/11/17 19:15 pt states her pain is improved. would like to eat something, ct results with ovarian cyst on left , trace free fluid, stool . pt states she stools daily. min tenderness on exam. will follow up oupt with application support consultant. dc home. *DC/Admit/Observation/Transfer Diagnosis at time of Disposition: Ovarian cyst, Constipation - Discharge Dispostion Disposition: HOME - Referrals Referrals: Azul Gil MD [Staff Physician] - Ghassan Loza MD [Staff Physician] - Marianne Herr MD [Primary Care Provider] - - Patient Instructions Printed Discharge Instructions: Constipation, DI for Ovarian Cyst Additional Instructions: Follow up OBGYN Dr. Gil for your ovarian cyst within 4-5 days,. Follow up with GI doctor Dr. Loza for constipation Come back to the emergency department for any new, worsening or concerning symptom. - Post Discharge Activity
== END 2017-09-11 19:30 | disposition home or self-care (01) ==
LOC: JER 13:14
PROC: 3E0337Z Introduction of Electrolytic and Water Balance Substance into Peripheral Vein, Percutaneous Approach (ICD-10-PCS; principal; 2017-09-11)
PROC: 3E0333Z Introduction of Anti-inflammatory into Peripheral Vein, Percutaneous Approach (ICD-10-PCS; 2017-09-11)
DX: N83.201 Unspecified ovarian cyst, right side (principal); K59.00 Constipation, unspecified; Z97.5 Presence of (intrauterine) contraceptive device
CPT/HCPCS: 36415; 74177-TC; 80053; 81003; 81015; 84703; 85025; 87086; 96361; 96374; 99283-25; J7030

== ENCOUNTER 2018-02-03 00:44 | Emergency (ER) | payer OTHER ==
[2018-02-03 01:20] VITALS: PULSE 78; TEMP 98.2; BMI 32.9
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
[2018-02-03] MEDS ORDERED: ACETAMINOPHEN 500 MG TABLET (FP) PO ONE (01:54)
[2018-02-03] MEDS ORDERED: ACETAMINOPHEN 325 MG TABLET (FP) ONE (02:04)
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
[2018-02-03 03:52] VITALS: BP 124/67
== END 2018-02-03 03:52 | disposition home or self-care (01) ==
LOC: JER 00:44
DX: R51 Headache (principal)
CPT/HCPCS: 70450-TC; 70486-TC; 84703; 99282-25

== ENCOUNTER 2020-01-24 19:10 | Inpatient (IN) | payer OTHER ==
[2020-01-24 19:23] VITALS: BMI 32.9
[2020-01-24 20:28] LABS: BASO % 0.6 % (0-2.0); EOS % 1.4 % (0-4.5); HEMATOCRIT 38.7 % (32.4-45.2); HEMOGLOBIN 12.7 GM/dL (10.7-15.3); LYMPH % 26.5 % (8-40); MCH 27.1 pg (25.7-33.7); MCHC 32.9 g/dl (32.0-36.0); MEAN CELL VOLUME 82.4 fl (80-96); MEAN PLT VOLUME 8.5 fl (7.5-11.1); MONO % 6.5 % (3.8-10.2); PLATELET COUNT 288 K/MM3 (134-434); RBC 4.69 M/mm3 (3.60-5.2); RDW 13.2 % (11.6-15.6); WHITE BLOOD COUNT 10.3 K/mm3 (4.0-10.0)
[2020-01-24 20:35] LABS: PH,URINE 5.5 (5.0-8.0); URINE APPEARANCE CLEAR; URINE BILIRUBIN NEGATIVE (NEGATIVE); URINE COLOR YELLOW; URINE GLUCOSE (UA) NEGATIVE (NEGATIVE); URINE KETONE NEGATIVE (NEGATIVE); URINE LEUK ESTERASE NEGATIVE (NEGATIVE); URINE NITRITE NEGATIVE (NEGATIVE); URINE PROTEIN NEGATIVE (NEGATIVE); URINE UROBILINOGEN 0.2 mg/dL (0.2-1.0)
[2020-01-24 21:06] LABS: ALBUMIN 3.7 g/dl (3.4-5.0); BILIRUBIN,TOTAL 0.3 mg/dL (0.2-1); BLOOD UREA NITROGEN 10.2 mg/dL (7-18); CALCIUM 8.8 mg/dL (8.5-10.1); CREATININE 0.7 mg/dL (0.55-1.3); POTASSIUM 4.2 mmol/L (3.5-5.1); TOT PROT 7.4 g/dl (6.4-8.2)
[2020-01-24 21:16] LABS: HCG,QUALITATIVE URINE Negative
[2020-01-24] MEDS ORDERED: morphine CARPU-JECT 2 MG/1 ML DISP.SYRIN IVPUSH ONE (22:06)
[2020-01-24] MEDS ORDERED: MORPHINE SULFATE 2 MG/ML VIAL ONE (22:24)
[2020-01-25] MEDS ORDERED: PIPERACILLIN/TAZOB 3.375 GM 3.375 GM in DEXTROSE 5%-WATER - 50 ML IVPB ONE
[2020-01-25] MEDS ORDERED: PIPERACILLIN/TAZOB 3.375 GM 3.375 GM/50 ML BAG IVPB ONE ×2 (00:13→09:26)
[2020-01-25] MEDS: SODIUM CHLORIDE 1,000 ML IV SCH ×2 (01:31→21:45)
[2020-01-25 07:34] LABS: BASO % 0.4 % (0-2.0); HEMATOCRIT 36.3 % (32.4-45.2); HEMOGLOBIN 11.9 GM/dL (10.7-15.3); LYMPH % 21.6 % (8-40); MCH 26.7 pg (25.7-33.7); MCHC 32.7 g/dl (32.0-36.0); MEAN CELL VOLUME 81.6 fl (80-96); MEAN PLT VOLUME 8.9 fl (7.5-11.1); MONO % 5.4 % (3.8-10.2); NEUT % 71.6 % (42.8-82.8); PLATELET COUNT 286 K/MM3 (134-434); RBC 4.45 M/mm3 (3.60-5.2); WHITE BLOOD COUNT 9.3 K/mm3 (4.0-10.0)
[2020-01-25 08:02] LABS: CALCIUM 8.3 mg/dL (8.5-10.1); CREATININE 0.7 mg/dL (0.55-1.3); MAGNESIUM 2.3 mg/dL (1.8-2.4); POTASSIUM 4.2 mmol/L (3.5-5.1)
[2020-01-25 08:10] LABS: BLOOD UREA NITROGEN 6.8 mg/dL (7-18)
[2020-01-25] MEDS: PIPERACILLIN/TAZOB 3.375 GM 3.375 GM in DEXTROSE 5%-WATER - 50 ML IVPB SCH ×2 (09:32→17:35)
[2020-01-25] MEDS ORDERED: MORPHINE SULFATE 2 MG/ML VIAL ONE (09:33)
[2020-01-25] MEDS: MORPHINE SULFATE 2 MG/ML VIAL IVPUSH PRN ×2 (09:37→20:22)
[2020-01-25] MEDS ORDERED: ONDANSETRON 4 MG/2 ML VIAL IVPUSH PRN (18:53)
[2020-01-26] MEDS: SODIUM CHLORIDE 1,000 ML IV SCH ×2 (01:43→18:52)
[2020-01-26] MEDS: PIPERACILLIN/TAZOB 3.375 GM 3.375 GM in DEXTROSE 5%-WATER - 50 ML IVPB SCH ×2 (01:43→20:02)
[2020-01-26 08:55] LABS: BASO % 0.7 % (0-2.0); EOS % 0.8 % (0-4.5); HEMATOCRIT 34.9 % (32.4-45.2); HEMOGLOBIN 11.5 GM/dL (10.7-15.3); LYMPH % 18.8 % (8-40); MCH 26.9 pg (25.7-33.7); MCHC 32.9 g/dl (32.0-36.0); MEAN CELL VOLUME 81.7 fl (80-96); MEAN PLT VOLUME 9.1 fl (7.5-11.1); MONO % 3.4 % (3.8-10.2); NEUT % 76.3 % (42.8-82.8); PLATELET COUNT 262 K/MM3 (134-434); RBC 4.27 M/mm3 (3.60-5.2); RDW 13.1 % (11.6-15.6); WHITE BLOOD COUNT 9.6 K/mm3 (4.0-10.0)
[2020-01-26 09:26] LABS: BLOOD UREA NITROGEN 8.4 mg/dL (7-18); CALCIUM 7.7 mg/dL (8.5-10.1); CREATININE 0.7 mg/dL (0.55-1.3); MAGNESIUM 2.1 mg/dL (1.8-2.4); PHOSPHOROUS 3.3 mg/dL (2.5-4.9)
[2020-01-26] MEDS ORDERED: PIPERACILLIN/TAZOB 3.375 GM 3.375 GM in DEXTROSE 5%-WATER - 50 ML IVPB SCH ×3 (10:00→19:30)
[2020-01-26] MEDS ORDERED: LIDOCAINE HCL/PF 2% SDV 5ML VIAL ONE (12:28)
[2020-01-26] MEDS ORDERED: KETOROLAC TROMETHAMINE 30 MG/1 ML VIAL ONE (12:28)
[2020-01-26] MEDS ORDERED: PROPOFOL 20 ML ONE (12:28)
[2020-01-26] MEDS ORDERED: DEXAMETHASONE SOD PHOSPHATE 4 MG/1 ML VIAL ONE (12:28)
[2020-01-26] MEDS ORDERED: ROCURONIUM BROMIDE 50 MG/5 ML SYRINGE ONE (12:30)
[2020-01-26] MEDS ORDERED: SUCCINYLCHOLINE CHLORIDE 200 MG/10 ML SYRINGE ONE (12:31)
[2020-01-26] MEDS ORDERED: ONDANSETRON 4 MG/2 ML VIAL IVPUSH PRN ×2 (12:49→14:40)
[2020-01-26] MEDS ORDERED: MIDAZOLAM HCL 2 MG/2 ML SINGLE DOSE VIAL ONE (12:54)
[2020-01-26] MEDS ORDERED: LACTATED RINGERS SOLUTION 1,000 ML IV SCH ×2 (13:00→15:30)
[2020-01-26] MEDS ORDERED: oxyCODONE HCL 5 MG TABLET PO PRN (13:18)
[2020-01-26] MEDS ORDERED: ACETAMINOPHEN 325 MG TABLET (FP) PO PRN (13:18)
[2020-01-26] MEDS ORDERED: morphine SULFATE 4 MG/ML VIAL IVPB PRN ×2 (13:18→19:28)
[2020-01-26] MEDS ORDERED: NEOSTIGMINE METHYLSULFATE 0.5 MG/ML - 10 ML MDV ONE (14:11)
[2020-01-26] MEDS ORDERED: GLYCOPYRROLATE 0.2 MG/1 ML VIAL ONE (14:12)
[2020-01-26] MEDS ORDERED: MORPHINE SULFATE 10 MG/1 ML *VIAL IVPB PRN (15:35)
[2020-01-26] MEDS ORDERED: PIPERACILLIN/TAZOBACTAM 3.375 GM VIAL IVPB ONE (19:48)
[2020-01-26] MEDS ORDERED: DEXTROSE 5%-WATER - 50 ML IVPB ONE (19:49)
[2020-01-27] MEDS ORDERED: PIPERACILLIN/TAZOBACTAM 3.375 GM VIAL IVPB ONE ×3 (01:14→17:22)
[2020-01-27] MEDS ORDERED: DEXTROSE 5%-WATER - 50 ML IVPB ONE ×3 (01:14→17:22)
[2020-01-27] MEDS: PIPERACILLIN/TAZOB 3.375 GM 3.375 GM in DEXTROSE 5%-WATER - 50 ML IVPB SCH ×3 (01:43→17:25)
[2020-01-27] MEDS ORDERED: PIPERACILLIN/TAZOB 3.375 GM 3.375 GM in DEXTROSE 5%-WATER - 50 ML IVPB SCH (02:00)
[2020-01-27 08:44] LABS: BASO % 0.5 % (0-2.0); EOS % 0.7 % (0-4.5); HEMATOCRIT 33.3 % (32.4-45.2); LYMPH % 23.4 % (8-40); MCH 27.1 pg (25.7-33.7); MCHC 33.1 g/dl (32.0-36.0); MEAN CELL VOLUME 81.9 fl (80-96); MEAN PLT VOLUME 9.5 fl (7.5-11.1); MONO % 6.5 % (3.8-10.2); NEUT % 68.9 % (42.8-82.8); PLATELET COUNT 259 K/MM3 (134-434); RBC 4.07 M/mm3 (3.60-5.2); RDW 13.1 % (11.6-15.6); WHITE BLOOD COUNT 9.2 K/mm3 (4.0-10.0)
[2020-01-27 09:18] LABS: POTASSIUM 4.1 mmol/L (3.5-5.1)
[2020-01-27 09:25] LABS: ALBUMIN 2.7 g/dl (3.4-5.0); BILIRUBIN,TOTAL 0.2 mg/dL (0.2-1); BLOOD UREA NITROGEN 6.9 mg/dL (7-18); CALCIUM 8.2 mg/dL (8.5-10.1); CREATININE 0.7 mg/dL (0.55-1.3); MAGNESIUM 2.2 mg/dL (1.8-2.4); PHOSPHOROUS 3.3 mg/dL (2.5-4.9); TOT PROT 5.9 g/dl (6.4-8.2)
[2020-01-27] MEDS ORDERED: PT OWN MED DRAWER 7, Y5N ONE (10:06)
[2020-01-27] MEDS: PANTOPRAZOLE SODIUM 40 MG VIAL IVPUSH SCH (10:15)
[2020-01-27] MEDS: ENOXAPARIN NA (PORCINE) 40 MG/0.4 ML DISP.SYRIN SQ SCH (10:18)
[2020-01-27] MEDS ORDERED: oxyCODONE HCL 5 MG TABLET PO PRN (16:26)
[2020-01-27] MEDS: SODIUM CHLORIDE 1,000 ML IV SCH (18:17)
[2020-01-28] MEDS ORDERED: DEXTROSE 5%-WATER - 50 ML IVPB ONE ×2 (00:25→08:54)
[2020-01-28] MEDS ORDERED: PIPERACILLIN/TAZOBACTAM 3.375 GM VIAL IVPB ONE ×2 (00:25→08:54)
[2020-01-28] MEDS: PIPERACILLIN/TAZOB 3.375 GM 3.375 GM in DEXTROSE 5%-WATER - 50 ML IVPB SCH ×2 (01:22→09:17)
[2020-01-28 07:46] LABS: BASO % 0.7 % (0-2.0); EOS % 1.5 % (0-4.5); HEMATOCRIT 30.9 % (32.4-45.2); MCH 26.6 pg (25.7-33.7); MCHC 32.4 g/dl (32.0-36.0); MEAN PLT VOLUME 8.9 fl (7.5-11.1); MONO % 4.9 % (3.8-10.2); NEUT % 47.9 % (42.8-82.8); PLATELET COUNT 254 K/MM3 (134-434); RBC 3.77 M/mm3 (3.60-5.2); RDW 13.1 % (11.6-15.6); WHITE BLOOD COUNT 6.4 K/mm3 (4.0-10.0)
[2020-01-28 08:11] LABS: BLOOD UREA NITROGEN 5.7 mg/dL (7-18); CALCIUM 8.3 mg/dL (8.5-10.1); CREATININE 0.9 mg/dL (0.55-1.3); MAGNESIUM 2.1 mg/dL (1.8-2.4); PHOSPHOROUS 3.6 mg/dL (2.5-4.9); POTASSIUM 4.2 mmol/L (3.5-5.1)
[2020-01-28] MEDS: PANTOPRAZOLE SODIUM 40 MG VIAL IVPUSH SCH (09:17)
[2020-01-28] MEDS: ENOXAPARIN NA (PORCINE) 40 MG/0.4 ML DISP.SYRIN SQ SCH (09:19)
[2020-01-28 10:27] VITALS: BP 138/81; PULSE 72; TEMP 98.1
== END 2020-01-28 12:23 | disposition home or self-care (01) | DRG 225 ==
LOC: JER 19:10 → JERBED 01-25 00:54 → J6WEST-2 01-25 09:58 → J8W 01-26 16:59
PROVIDERS: ADMIT Internal Medicine; ATTEND Student in an Organized Health Care Education/Training Program
PROC: 3E1M38Z Irrigation of Peritoneal Cavity using Irrigating Substance, Percutaneous Approach (ICD-10-PCS; 2020-01-26)
PROC: 0DTJ4ZZ Resection of Appendix, Percutaneous Endoscopic Approach (ICD-10-PCS; principal; 2020-01-26 15:00)
DX: K35.80 Unspecified acute appendicitis (principal); E66.9 Obesity, unspecified; N83.209 Unspecified ovarian cyst, unspecified side; Z68.32 Body mass index [BMI] 32.0-32.9, adult; L02.91 Cutaneous abscess, unspecified; D25.9 Leiomyoma of uterus, unspecified; R10.30 Lower abdominal pain, unspecified
CPT/HCPCS: 36415; 74176-TC; 74177-TC; 76830-TC; 80048; 80053; 81003; 83690; 83735; 84100; 84703; 85025; 88304-TC; 93005; 93010; 94010; 94760; 99285-25; Q9967; U0003

== ENCOUNTER 2020-09-28 17:32 | Emergency (ER) | payer OTHER ==
[2020-09-28 17:42] VITALS: BP 126/82; PULSE 95; TEMP 98.2; BMI 25.6
== END 2020-09-28 18:32 | disposition home or self-care (01) ==
LOC: JERFT 17:32
DX: K08.89 Other specified disorders of teeth and supporting structures (principal)
CPT/HCPCS: 99283-25

== ENCOUNTER 2020-12-10 13:46 | Emergency (ER) | payer OTHER ==
[2020-12-10 14:02] VITALS: BP 114/70; PULSE 93; TEMP 100; BMI 32.1
[2020-12-10] MEDS ORDERED: ACETAMINOPHEN 325 MG TABLET (FP) PO ONE (14:03)
[2020-12-10] MEDS ORDERED: ACETAMINOPHEN 325 MG TABLET (FP) ONE (14:14)
== END 2020-12-10 17:51 | disposition home or self-care (01) ==
LOC: JER 13:46
DX: J06.9 Acute upper respiratory infection, unspecified (principal); Z11.52 Encounter for screening for COVID-19
CPT/HCPCS: 87804; 87807; 87880; 99283-25; C9803; U0003; U0005

== ENCOUNTER 2021-03-22 16:33 | Emergency (ER) | payer OTHER ==
[2021-03-22 16:44] VITALS: BP 120/72; PULSE 77; TEMP 98.2; BMI 58.0
== END 2021-03-22 18:04 | disposition home or self-care (01) ==
LOC: JER 16:33
DX: J11.1 Influenza due to unidentified influenza virus with other respiratory manifestations (principal)
CPT/HCPCS: 87804; 99283-25; C9803; U0003; U0005

== ENCOUNTER 2022-01-06 11:32 | Emergency (ER) | payer OTHER ==
[2022-01-06 11:56] VITALS: TEMP 97.9; BMI 23.8
[2022-01-06 16:28] VITALS: BP 113/70; PULSE 77; RESP 15
== END 2022-01-06 16:28 | disposition home or self-care (01) ==
LOC: JER 11:32
DX: K62.5 Hemorrhage of anus and rectum (principal)
CPT/HCPCS: 99281-25

== ENCOUNTER 2022-01-19 19:37 | Emergency (ER) | payer OTHER ==
[2022-01-19 19:46] VITALS: BP 127/96; PULSE 73; RESP 18; TEMP 98.8; BMI 27.4
[2022-01-19] MEDS ORDERED: SODIUM CHLORIDE 0.9% 500 ML INFUS.BAG IV ONE (20:11)
[2022-01-19 20:33] LABS: BASO % 0.8 % (0-2.0); EOS % 0.5 % (0-4.5); HEMATOCRIT 37.1 % (32.4-45.2); HEMOGLOBIN 12.1 GM/dL (10.7-15.3); MCH 26.5 pg (25.7-33.7); MCHC 32.6 g/dl (32.0-36.0); MEAN CELL VOLUME 81.5 fl (80-96); MEAN PLT VOLUME 7.9 fl (7.5-11.1); MONO % 5.5 % (3.8-10.2); NEUT % 73.2 % (42.8-82.8); PLATELET COUNT 351 10^3/uL (134-434); RBC 4.55 M/mm3 (3.60-5.2); RDW 12.9 % (11.6-15.6); WHITE BLOOD COUNT 13.7 K/mm3 (4.0-10.0)
[2022-01-19 20:54] LABS: CALCIUM 9.2 mg/dL (8.5-10.1)
[2022-01-19 20:55] LABS: BLOOD UREA NITROGEN 5.8 mg/dL (7-18)
[2022-01-19 20:58] LABS: CREATININE 0.6 mg/dL (0.55-1.3)
[2022-01-19 21:54] LABS: PH,URINE 6.5 (5.0-8.0); URINE APPEARANCE CLEAR; URINE BILIRUBIN NEGATIVE (NEGATIVE); URINE COLOR YELLOW; URINE GLUCOSE (UA) NEGATIVE (NEGATIVE); URINE KETONE 3+ (NEGATIVE); URINE LEUK ESTERASE NEGATIVE (NEGATIVE); URINE NITRITE NEGATIVE (NEGATIVE); URINE PROTEIN NEGATIVE (NEGATIVE); URINE UROBILINOGEN 0.2 mg/dL (0.2-1.0)
== END 2022-01-19 22:30 | disposition home or self-care (01) ==
LOC: JER 19:37
DX: R53.1 Weakness (principal); R11.2 Nausea with vomiting, unspecified; Z33.1 Pregnant state, incidental; Z3A.01 Less than 8 weeks gestation of pregnancy
CPT/HCPCS: 36415; 76817-TC; 80048; 81003; 84702; 84703; 85025; 99284-25

== ENCOUNTER 2022-07-27 11:19 | Emergency (ER) | payer OTHER ==
[2022-07-27 11:28] VITALS: BP 117/68; PULSE 85; RESP 18; TEMP 98.7; BMI 32.9
[2022-07-27] MEDS ORDERED: IBUPROFEN 600 MG TABLET (FP) PO ONE ×2 (13:05→13:09)
== END 2022-07-27 13:46 | disposition home or self-care (01) ==
LOC: JERFT 11:19
DX: S93.601A Unspecified sprain of right foot, initial encounter (principal); M79.672 Pain in left foot; W22.8XXA Striking against or struck by other objects, initial encounter; Y93.01 Activity, walking, marching and hiking
CPT/HCPCS: 73610-TC-RT-FY; 73630-TC-RT-FY; 73660-TC-LT-FY; 99283-25

== ENCOUNTER 2023-01-16 09:16 | Emergency (ER) | payer OTHER ==
[2023-01-16 09:24] VITALS: BP 125/77; PULSE 83; RESP 20; TEMP 99.7; BMI 24.7
== END 2023-01-16 10:35 | disposition home or self-care (01) ==
LOC: JERFT 09:16 → JER 09:16 → JERFT 10:35
DX: H60.502 Unspecified acute noninfective otitis externa, left ear (principal); L04.9 Acute lymphadenitis, unspecified; R05.1 Acute cough; U07.1 COVID-19
CPT/HCPCS: 0241U-QW; 87070; 87651; 99283-25

== ENCOUNTER 2023-06-15 16:27 | Emergency (ER) | payer OTHER ==
[2023-06-15 16:54] VITALS: BP 106/56; PULSE 54; RESP 18; TEMP 98.5; BMI 30.2
[2023-06-15] MEDS ORDERED: ONDANSETRON *ODT* 4 MG TABLET ONE (17:01)
[2023-06-15] MEDS: ONDANSETRON *ODT* 4 MG TABLET SL ONE (17:12)
== END 2023-06-15 21:34 | disposition left against medical advice (07) ==
LOC: JER 16:27
DX: R11.2 Nausea with vomiting, unspecified (principal)
CPT/HCPCS: 99283-25; Q0162

== ENCOUNTER 2024-10-17 19:45 | Emergency (ER) | payer OTHER ==
[2024-10-17 19:51] VITALS: BP 120/78; PULSE 81; RESP 17; TEMP 98.3; BMI 31.1
[2024-10-17] MEDS ORDERED: IBUPROFEN 600 MG TABLET (FP) PO ONE (21:00)
[2024-10-17] MEDS: IBUPROFEN 600 MG TABLET (FP) PO ONE (21:01)
== END 2024-10-17 21:34 | disposition home or self-care (01) ==
LOC: JERFT 19:45
DX: M79.10 Myalgia, unspecified site (principal); B34.9 Viral infection, unspecified; R53.83 Other fatigue; R05.9 Cough, unspecified; R68.83 Chills (without fever)
CPT/HCPCS: 0241U-QW; 99283-25